=== PATIENT | male | born 1955 | race Caucasian/White ===

== ENCOUNTER → 2023-01-21 | Day surgery (SDC) | payer BC ==
[~2023-01-21] MED LIST: PROPOFOL 10 MG/ML 20 ML VIAL IV ONE
[2023-01-21] MEDS: LACTATED RINGERS 1,000 ML IV SCH ×2 (10:37→11:23)
[2023-01-21 11:04] LABS: Glucose,Whole Blood 91 mg/dL (70-110)
[2023-01-21 11:05] VITALS: TEMP 97
--- NOTE | 2023-01-21 11:41 | P.PCN ---
Date of Procedure: 01/21/23 Procedure(s) Performed: BRIEF HISTORY: Patient is a 67-year-old pleasant white male scheduled for an elective colonoscopy as a part of screening for colon cancer. PROCEDURE PERFORMED: Colonoscopy. PREOPERATIVE DIAGNOSIS: Screening for colon cancer. IV sedation per Anesthesia. PROCEDURE: After informed consent was obtained, the patient, was brought into the endoscopy unit. IV sedation was administered by Anesthesia under continuous monitoring. Digital rectal examination was normal. Initially the Olympus CF-160 flexible video colonoscope was then inserted in the rectum, gradually advanced into the cecum without any difficulty. Careful examination was performed as the scope was gradually being withdrawn. Ileocecal valve and the appendiceal orifice were visualized and appeared normal. Prep was excellent. Mucosa of the cecum, ascending colon, transverse colon, descending colon, sigmoid colon, and rectum appeared normal. Scattered sigmoid diverticulosis Retroflexion was performed in the rectum and no lesions were seen. The patient tolerated the procedure well. IMPRESSION: Normal-appearing colon from rectum to cecum with no evidence of colorectal neoplasia. Scattered sigmoid diverticula RECOMMENDATIONS: Findings of this examination were discussed with the patient as well as his family. He was advised to have a repeat screening colonoscopy in 10 years.
[2023-01-21 12:22] VITALS: BP 122/78; PULSE 81; RESP 12
== END ==
LOC: ORWHC2ENDO 10:25
PROVIDERS: ATTEND Internal Medicine Gastroenterology
DX: Z12.11 Encounter for screening for malignant neoplasm of colon (principal); K57.30 Diverticulosis of large intestine without perforation or abscess without bleeding; I25.10 Atherosclerotic heart disease of native coronary artery without angina pectoris; I10 Essential (primary) hypertension; E78.5 Hyperlipidemia, unspecified; E11.9 Type 2 diabetes mellitus without complications; K21.9 Gastro-esophageal reflux disease without esophagitis; Z79.84 Long term (current) use of oral hypoglycemic drugs; Z79.82 Long term (current) use of aspirin; Z95.1 Presence of aortocoronary bypass graft; Z79.899 Other long term (current) drug therapy
CPT/HCPCS: 45378; J2704

== ENCOUNTER → 2023-11-24 | Outpatient (CLI) | payer BC ==
--- NOTE | 2023-11-26 11:13 | US ---
EXAMINATION TYPE: US scrotum with doppler. DATE OF EXAM: 11/24/2023 COMPARISON: NONE CLINICAL INDICATION: Male, 67 years old with history of N50.89 OTHER SPECIFIED DISORDERS OF THE MALE GENIT; Pt states he has felt a lump on the inferior portion of his testicle for about a year History of a vasectomy many years ago TECHNIQUE: Grayscale, color Doppler and spectral Doppler imaging of the scrotum. FINDINGS: EXAM MEASUREMENTS: TESTICLES: Right Testicle: 3.2 x 2.5 x 1.6 cm Left Testicle: 3.0 x 2.4 x 1.6 cm EPIDIDYMIS HEAD: Right Epididymis: 1.0 cm. Epi head cyst measuring 0.7 x 0.5 x 0.5cm Left Epididymis: 1.0 cm Doppler performed to assess for testicular vascularity; good bilateral color flow and waveforms are s een. There is no evidence of testicular torsion. Presence of hydroceles: No Presence of varicoceles: No Bilateral heterogeneous appearing epididymis'. Complex area seen at right epi tail measuring 2.1 x 1. 4 x 1.4cm with peripheral vascularity. Demonstrates echogenic rim. IMPRESSION: 1. No evidence of testicular torsion or intratesticular mass. 2. Right epididymal tail 2.1 cm lesion. 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 Other etiologies include an adenomatoid tumor of the scrotum versus other. Uro logy consult is recommended. [facility], , 11/26/2023 11:11 AM
== END | disposition home or self-care (01) ==
LOC: RADUSWWP 14:52
PROVIDERS: ATTEND Family Medicine
DX: N50.89 Other specified disorders of the male genital organs (principal)
CPT/HCPCS: 76870; 93975